=== PATIENT | male | born 1935 | race African-American/Black ===

== ENCOUNTER 2025-01-25 14:46 | Inpatient (IN) | payer OTHER ==
[2025-01-25] VITALS (30 sets, daily range): BP systolic 117–164; BP diastolic 88–128; PULSE 84–99; RESP 14–20; TEMP 36.3–36.9184; O2SAT 97–100
[~2025-01-25] VITALS: Ht 154.4 cm; Wt 72.1 kg
[2025-01-25] MEDS: SODIUM CHLORIDE 0.9% 1,000 ML IV ONE (15:20)
[2025-01-25] MEDS: IOHEXOL-350 100 ML BOTTLE ONE (15:21)
[2025-01-25] MEDS: TENECTEPLASE 50MG/VIAL IV ONE (15:30)
[2025-01-25 15:38] LABS: BASOPHILS % 0.3 % (0.0-2.0); EOSINOPHILS % 0.0 % (0.0-5.0); HEMATOCRIT. 36.2 % (42.0-52.0); HEMOGLOBIN. 12.3 g/dL (14.0-18.0); LYMPHOCYTES % 9.8 % (20.0-50.0); MEAN PLATELET VOLUME 7.2 fl (7.4-10.4); MONOCYTES % 4.3 % (2.0-8.0); NEUTROPHILS % 85.6 % (40.0-76.0); PLATELET 224 x1000/uL (130-400); RED BLOOD CELL COUNT 3.73 mill/uL (4.7-6.1); RED CELL DISTRIBUTION WIDTH 14.1 % (11.6-14.6)
[2025-01-25 15:47] LABS: INR 1.2
[2025-01-25 15:48] LABS: CREATININE 0.7 mg/dL (0.6-1.3)
[2025-01-25 15:49] LABS: ETHANOL BLOOD < 10 mg/dL (<10); UREA NITROGEN BLOOD 12 mg/dL (9-23)
[2025-01-25 15:50] LABS: ASPARTATE AMINOTRANSFERASE 18 IU/L (<34); BILIRUBIN DIRECT 0.5 mg/dL (<=3.0)
[2025-01-25 15:51] LABS: BILIRUBIN TOTAL 1.1 mg/dL (0.1-1.0); PROTEIN TOTAL 5.2 g/dL (6.0-8.3)
[2025-01-25] MEDS ORDERED: *TENECTEPLASE FOR AIS XX SCH (16:00)
[2025-01-25] MEDS: TENECTEPLASE 50MG/VIAL IV SCH (16:14)
[2025-01-25] MEDS: SODIUM CHLORIDE 0.9% (SEPSIS BOLUS) IV ONE (16:34)
[2025-01-25] MEDS: PIPERACILLIN/TAZO 3.375G/50ML 50 ML IV ONE (16:34)
[2025-01-25] MEDS: VANCOMYCIN 1G PREMIX 200 ML IV ONE (16:59)
[2025-01-25] MEDS ORDERED: MAGNESIUM/ALUMINUM HYDROXIDE/SIMETHICONE 30ML UDC PO PRN (19:30)
[2025-01-25] MEDS ORDERED: GUAIFENESIN 200MG/10ML SUGAR FREE UDC PO PRN (19:30)
[2025-01-25] MEDS ORDERED: ONDANSETRON HCL 4MG/2ML INJ IV PRN (19:30)
[2025-01-25] MEDS ORDERED: IPRATROPIUM/ALBUTEROL 0.5-3(2.5)MG/3ML NEB HHN PRN (19:30)
[2025-01-25] MEDS ORDERED: ACETAMINOPHEN 325MG TABLET PO PRN ×2 (19:30)
[2025-01-25] MEDS ORDERED: NICARDIPINE 40MG/200ML PREMIX 200 ML IV PRN (20:15)
[2025-01-25] MEDS ORDERED: DILTIAZEM HCL 5MG/ML 5ML VIAL IV PRN ×2 (21:00→21:30)
[2025-01-25] MEDS: ATORVASTATIN CALCIUM 40MG TABLET PO SCH (22:20)
[2025-01-26] VITALS (49 sets, daily range): BP systolic 125–155; BP diastolic 89–122; PULSE 88–116; RESP 13–21; TEMP 36.8–36.9; O2SAT 92–99
[2025-01-26 00:55] LABS: TROPONIN I HIGH SENSITIVITY 18 ng/L (3.0-53)
[2025-01-26] MEDS: PANTOPRAZOLE SODIUM 40 MG/VIAL IV SCH (01:16)
[2025-01-26] MEDS: AZITHROMYCIN 500MG/250ML 250 ML IV SCH (01:17)
[2025-01-26] MEDS: CEFTRIAXONE 1GM/50ML 50 ML IV SCH (01:17)
[2025-01-26 05:50] LABS: BASOPHILS % 0.1 % (0.0-2.0); EOSINOPHILS % 0.1 % (0.0-5.0); HEMATOCRIT. 38.8 % (42.0-52.0); HEMOGLOBIN. 13.2 g/dL (14.0-18.0); LYMPHOCYTES % 11.3 % (20.0-50.0); MEAN PLATELET VOLUME 7.0 fl (7.4-10.4); MONOCYTES % 5.3 % (2.0-8.0); NEUTROPHILS % 83.2 % (40.0-76.0); PLATELET 236 x1000/uL (130-400); RED BLOOD CELL COUNT 4.01 mill/uL (4.7-6.1); RED CELL DISTRIBUTION WIDTH 14.0 % (11.6-14.6)
[2025-01-26 05:57] LABS: CREATININE 0.6 mg/dL (0.6-1.3); T4 FREE 1.04 ng/dL (0.89-1.76)
[2025-01-26 05:58] LABS: LDL CHOLESTEROL 41 mg/dL (5-100); TRIGLYCERIDE 71 mg/dL (0-150); UREA NITROGEN BLOOD 8 mg/dL (9-23)
[2025-01-26 15:54] LABS: TROPONIN I HIGH SENSITIVITY 19 ng/L (3.0-53)
[2025-01-26] MEDS: DIPHENHYDRAMINE 50MG/ML VIAL IV PRN (23:19)
[2025-01-27] VITALS (30 sets, daily range): BP systolic 92–153; BP diastolic 67–110; PULSE 10–115; RESP 8–30; TEMP 36.7–36.9; O2SAT 98–100
[2025-01-27 00:33] LABS: TROPONIN I HIGH SENSITIVITY 17 ng/L (3.0-53)
[2025-01-27 06:46] LABS: BASOPHILS % 0.1 % (0.0-2.0); EOSINOPHILS % 0.2 % (0.0-5.0); HEMATOCRIT. 38.4 % (42.0-52.0); HEMOGLOBIN. 13.1 g/dL (14.0-18.0); LYMPHOCYTES % 12.8 % (20.0-50.0); MEAN PLATELET VOLUME 7.2 fl (7.4-10.4); MONOCYTES % 7.2 % (2.0-8.0); NEUTROPHILS % 79.7 % (40.0-76.0); PLATELET 240 x1000/uL (130-400); RED BLOOD CELL COUNT 4.00 mill/uL (4.7-6.1); RED CELL DISTRIBUTION WIDTH 13.8 % (11.6-14.6)
[2025-01-27 06:54] LABS: CREATININE 0.5 mg/dL (0.6-1.3); UREA NITROGEN BLOOD 6 mg/dL (9-23)
[2025-01-27] MEDS: POTASSIUM CHLORIDE 20MEQ/PACKET PO SCH (08:12)
[2025-01-27] MEDS: HYDRALAZINE 20MG/ML VIAL IV PRN (08:22)
[2025-01-27] MEDS ORDERED: DEXTROSE 50% WATER 50ML SYRINGE IV PRN (08:45)
[2025-01-27] MEDS: ASPIRIN 81MG TABLET PO SCH (09:54)
[2025-01-27] MEDS: MAGNESIUM 1 G PREMIX 100 ML IV NR (12:06)
[2025-01-27] MEDS: DOCUSATE SODIUM 100MG CAPSULE PO PRN (12:06)
[2025-01-27] MEDS: BLOOD SUGAR DIAGNOSTIC STRIP TEST SCH (12:06)
[2025-01-27] MEDS: INSULIN LISPRO 100 UNITS/ML SUBCUT SCH (14:31)
[2025-01-27] MEDS: METOPROLOL TARTRATE 25MG TABLET PO SCH (20:07)
== END 2025-01-27 21:49 | disposition short-term general hospital (02) | DRG 91 ==
LOC: ER 14:46 → EDBEDREQTM 17:37 → EDBEDREQ 17:37 → EDBEDREQSVC 17:37 → ENRESERV 17:50 → CVICU 18:52
PROVIDERS: ADMIT Hospitalist; ATTEND Hospitalist
DX: R29.810 Facial weakness (principal); J18.9 Pneumonia, unspecified organism; J96.01 Acute respiratory failure with hypoxia; F03.A2 Unspecified dementia, mild, with psychotic disturbance; F05 Delirium due to known physiological condition; I50.20 Unspecified systolic (congestive) heart failure; R47.81 Slurred speech; I11.9 Hypertensive heart disease without heart failure; D64.9 Anemia, unspecified; E11.65 Type 2 diabetes mellitus with hyperglycemia; E78.5 Hyperlipidemia, unspecified; E83.51 Hypocalcemia; E88.09 Other disorders of plasma-protein metabolism, not elsewhere classified; I45.10 Unspecified right bundle-branch block; I48.0 Paroxysmal atrial fibrillation; I11.0 Hypertensive heart disease with heart failure; I49.3 Ventricular premature depolarization; R32 Unspecified urinary incontinence; I65.02 Occlusion and stenosis of left vertebral artery; I65.21 Occlusion and stenosis of right carotid artery; E87.6 Hypokalemia; N40.0 Benign prostatic hyperplasia without lower urinary tract symptoms; R29.704 NIHSS score 4; R29.708 NIHSS score 8; I95.9 Hypotension, unspecified; I69.30 Unspecified sequelae of cerebral infarction; Z74.01 Bed confinement status; Z79.4 Long term (current) use of insulin; Z79.899 Other long term (current) drug therapy; Z79.82 Long term (current) use of aspirin; Z87.891 Personal history of nicotine dependence
CPT/HCPCS: 36415; 70496; 70498; 70551; 71045; 72141; 80048; 80061; 80076; 80320; 82962; 83036; 83605; 83735; 83880; 84145; 84439; 84443; 84484; 85025; 92610; 93005; 93306; 93970; 97162; 97166; 97530; 99285; A4606; J0360; J0456; J0696; J1200; J1815; J2060; J2470; J2543; J3101; J3373; J3475; J7030; Q9967; G0480